=== PATIENT | male | born 1960 | race Caucasian/White ===

== ENCOUNTER 2017-01-02 22:14 | Emergency (ER) | payer OTHER ==
[2017-01-02 22:16] VITALS: BMI 28.3
[2017-01-02 22:49] VITALS: TEMP 97.3
[2017-01-02] MEDS ORDERED: Sodium Chloride 0.9% 1,000 ML IV STA (23:27)
[2017-01-02 23:47] LABS: ADD MANUAL DIFF? NO
--- NOTE | 2017-01-02 23:56 | ED PDOC ---
Arrival/HPI - General Chief Complaint: GI Problem Time Seen by Provider: 01/02/17 23:27 Historian: Patient - History of Present Illness Narrative History of Present Illness (Text): 01/02/17 23:52 Jersey Villarreal is a 56 year old male, with a history of hypertension and diabetes , presents to the emergency department complaining of nausea and vomiting which began few hour prior to arrival. Patient was getting ready for work when the symptoms presented. States he had 5 episodes of non-bloody and non-bilious vomiting and felt dizzy while vomiting. Patient has some diffuse abdominal discomfort. Denies any fever, chills, headache, chest pain, shortness of breath , diarrhea, urinary symptoms, or any other complaints at this time. Time/Duration: 1-3 hours Symptom Onset: Sudden Symptom Course: Improving Severity Level: Mild Activities at Onset: Light Context: Home Past Medical History - Provider Review Nursing Documentation Reviewed: Yes - Tetanus Immunization Tetanus Immunization: Unknown - Cardiac Hx Hypertension: Yes - Endocrine/Metabolic Hx Diabetes Mellitus Type 2: Yes (controlled by diet) - Psychiatric Hx Substance Use: No - Past Surgical History Past Surgical History: No Previous - Suicidal Assessment Feels Threatened In Home Enviroment: No Family/Social History - Physician Review Nursing Documentation Reviewed: Yes Family/Social History: No Known Family HX Smoking Status: Former Smoker Hx Alcohol Use: No Hx Substance Use: No Hx Substance Use Treatment: No Allergies/Home Meds Allergies/Adverse Reactions: Allergies No Known Allergies Allergy (Verified 10/30/14 11:23) Home Medications: Home Meds Medication Instructions Recorded Confirmed Lisinopril/Hydrochlorothiazide 1 tab PO DAILY 10/30/14 10/30/14 [Lisinopril-Hydrochlorothiazide 12.5 mg-20 mg] Review of Systems - Physician Review All systems were reviewed & negative as marked: Yes - Review of Systems Constitutional: Normal. absent: Fatigue, Fevers Respiratory: Normal. absent: SOB, Cough, Sputum Cardiovascular: Normal. absent: Chest Pain, Palpitations Gastrointestinal: Abdominal Pain, Nausea, Vomiting. absent: Diarrhea Neurological: Dizziness. absent: Headache Psychiatric: Normal Physical Exam Vital Signs Reviewed: Yes Vital Signs Temp Pulse Resp BP Pulse Ox 01/03/17 02:30 59 L 16 107/66 98 01/03/17 01:30 59 L 16 102/62 98 01/03/17 01:00 65 18 104/69 97 01/02/17 23:30 63 18 123/68 96 01/02/17 22:43 97.3 F L 67 19 130/88 99 Temperature: Afebrile Blood Pressure: Normal Pulse: Regular Respiratory Rate: Normal Appearance: Positive for: Well-Appearing, Non-Toxic, Comfortable Pain Distress: None Mental Status: Positive for: Alert and Oriented X 3 - Systems Exam Head: Present: Atraumatic, Normocephalic Pupils: Present: PERRL Conjunctiva: Present: Normal Mouth: Present: Dry Respiratory/Chest: Present: Clear to Auscultation, Good Air Exchange. No: Respiratory Distress, Accessory Muscle Use Cardiovascular: Present: Regular Rate and Rhythm, Normal S1, S2. No: Murmurs Abdomen: Present: Normal Bowel Sounds. No: Tenderness, Distention, Peritoneal Signs, Rebound, Guarding Upper Extremity: Present: Normal Inspection. No: Cyanosis, Edema Lower Extremity: Present: Normal Inspection. No: Edema Neurological: Present: GCS=15, CN II-XII Intact, Speech Normal, Motor Func Grossly Intact, Normal Sensory Function Skin: Present: Warm, Dry, Normal Color. No: Rashes Psychiatric: Present: Alert, Oriented x 3, Normal Insight, Normal Concentration Medical Decision Making ED Course and Treatment: 01/02/17 23:57 Impression: A 56 year old male who presents to emergency department for evaluation of nausea, and vomiting which began few hours prior to arrival. Plan: -- Labs, cardiac enzymes -- Pepcid -- Zofran -- IV fluids -- Reassess and disposition Progress Notes: 01/03/17 00:40 EKG interpreted by me: NSR @ 68 bpm. Normal axis. Normal interval. 01/03/17 00:40 On reevaluation the patient feels better and is in no acute distress. I have discussed the results and plan with the patient, who expresses understanding. Patient given the opportunity to ask question, all questions were answered and there is agreement with the plan to discharge the patient home. Patient is stable for discharge. Patient was instructed to follow up with physician/clinic in 1-2 days or return if symptoms persist/worsen or new concerning symptoms arise. - Lab Interpretations Lab Results: 01/02/17 23:40 01/02/17 23:40 Lab Results 01/02/17 23:40: Sodium 140, Potassium 4.0, Chloride 103, Carbon Dioxide 29, Anion Gap 12, BUN 22 H, Creatinine 0.7, Est GFR ( Amer) > 60, Est GFR ( Non-Af Amer) > 60, Random Glucose 123 H, Calcium 9.1, Total Bilirubin 1.0, AST 23, ALT 34, Alkaline Phosphatase 62, Lactate Dehydrogenase 387, Total Creatine Kinase 87, Troponin I < 0.01, Total Protein 7.4, Albumin 3.9, Globulin 3.5, Albumin/Globulin Ratio 1.1, Lipase 44 01/02/17 23:40: WBC 6.7, RBC 4.58, Hgb 14.0, Hct 40.9 L, MCV 89.3, MCH 30.6, MCHC 34.2, RDW 12.7, Plt Count 167, MPV 10.0, Gran % 74.1 H, Lymph % (Auto) 19.0 L, Norman % (Auto) 5.3, Eos % (Auto) 1.3 L, Baso % (Auto) 0.3, Gran # 4.98, Lymph # 1.3, Norman # 0.4, Eos # 0.1, Baso # 0.02 - Medication Orders Current Medication Orders: Discontinued Medications Acetaminophen (Tylenol 325mg Tab) 975 mg PO STAT STA Stop: 01/03/17 02:39 Last Admin: 01/03/17 03:04 Dose: 975 mg Famotidine (Pepcid) 20 mg IVP STAT STA Stop: 01/02/17 23:28 Last Admin: 01/02/17 23:43 Dose: 20 mg Sodium Chloride (Sodium Chloride 0.9%) 1,000 mls @ 100 mls/hr IV .Q10H STA Stop: 01/03/17 09:26 Last Admin: 01/02/17 23:42 Dose: 100 mls/hr Meclizine HCl (Antivert) 25 mg PO STAT STA Stop: 01/03/17 00:48 Last Admin: 01/03/17 01:11 Dose: 25 mg Ondansetron HCl (Zofran Inj) 4 mg IVP STAT STA Stop: 01/02/17 23:28 Last Admin: 01/02/17 23:43 Dose: 4 mg - Scribe Statement The provider has reviewed the documentation as recorded by the Scribe Barbie Mendiola Provider Attestation: All medical record entries made by the Yue were at my direction and personally dictated by me. I have reviewed the chart and agree that the record accurately reflects my personal performance of the history, physical exam, medical decision making, and the department course for this patient. I have also personally directed, reviewed, and agree with the discharge instructions and disposition. Disposition/Present on Arrival - Present on Arrival Any Indicators Present on Arrival: No History of DVT/PE: No History of Uncontrolled Diabetes: No Urinary Catheter: No History of Decub. Ulcer: No History Surgical Site Infection Following: None - Disposition Have Diagnosis and Disposition been Completed?: Yes Diagnosis: Gastritis, Dehydration Disposition: HOME/ ROUTINE Disposition Time: 00:40 Condition: IMPROVED Discharge Instructions (ExitCare): Gastritis (ED) Additional Instructions: Thank you for letting us take care of you today. Your provider was Dr. Schultz. You were treated for gastritis and dehydration. The emergency medical care you received today was directed at your acute symptoms. If you were prescribed any medication, please fill it and take as directed. It may take several days for your symptoms to resolve. Return to the Emergency Department if your symptoms worsen, do not improve, or if you have any other problems. Please contact your doctor or call one of the physicians/clinics you have been referred to that are listed on the Patient Visit Information form that is included in your discharge packet. Bring any paperwork you were given at discharge with you along with any medications you are taking to your follow up visit. Our treatment cannot replace ongoing medical care by a primary care provider (PCP) outside of the emergency department. Thank you for allowing the [facility] team to be part of your care today. Follow up with your doctor in 3-4 days. Prescriptions: Ranitidine HCl [Zantac] 150 mg PO BID #20 tablet Referrals: Jake Chaparro MD [Primary Care Provider] - Follow up with primary
[2017-01-02 23:57] LABS: BASO # 0.02 K/mm3 (0.0-2.0); BASO % 0.3 % (0.0-3.0); EOS # 0.1 (0.0-0.7); EOS % 1.3 % (1.5-5.0); GRAN # 4.98 (1.4-6.5); GRAN % 74.1 % (50.0-68.0); HEMATOCRIT 40.9 % (42.0-52.0); LYMPH # 1.3 (1.2-3.4); MEAN CELL VOLUME 89.3 fL (80.0-105.0); MEAN CORPUSCULAR HEMOGLOBIN 30.6 pg (25.0-35.0); MEAN CORPUSCULAR HGB CONC 34.2 g/dl (31.0-37.0); MONO # 0.4 (0.1-0.6); MONO % 5.3 % (1.0-6.0); PLATELET COUNT 167 10^3/uL (120.0-450.0); RED CELL DISTRIBUTION WIDTH 12.7 % (11.5-14.5); WHITE BLOOD COUNT 6.7 10^3/ul (4.5-11.0)
[2017-01-03 00:20] LABS: ALB/GLOB RATIO 1.1 (1.1-1.8); ALKALINE PHOSPHATASE 62 U/L (38-133); ALT/SGPT 34 U/L (7-56); AST/SGOT 23 U/L (15-59); BLOOD UREA NITROGEN 22 mg/dL (7-21); CALCIUM 9.1 mg/dL (8.4-10.5); CARBON DIOXIDE 29 mmol/L (21-33); CHLORIDE 103 mmol/L (98-107); GFR AFRICAN-AMERICAN > 60; GLUCOSE,RANDOM 123 mg/dL (70-110); LIPASE 44 U/L (23-300); SODIUM 140 mmol/L (132-148); TOTAL PROTEIN 7.4 g/dL (5.8-8.3)
[2017-01-03 00:42] LABS: TROPONIN I < 0.01 ng/mL
[2017-01-03 02:57] VITALS: PULSE 59; RESP 16; O2SAT 98
[2017-01-03 02:58] VITALS: BP 107/66
--- NOTE | 2017-01-03 22:43 | CARD ---
APPROVED REPORT EKG Measurement Heart [id number] <Conclusion> Normal sinus rhythm RBBB Cannot rule out Inferior infarct, age undetermined Abnormal ECG
== END 2017-01-03 03:05 | disposition home or self-care (01) ==
LOC: ED 22:14
DX: K29.70 Gastritis, unspecified, without bleeding (principal); E86.0 Dehydration; I10 Essential (primary) hypertension; E11.9 Type 2 diabetes mellitus without complications; Z87.891 Personal history of nicotine dependence
CPT/HCPCS: 80053; 82550; 83615; 83690; 84484; 85025; 93005; 96374; 96375; 99285; J2405; J7040